=== PATIENT | female | born 1990 | race Caucasian/White ===

== ENCOUNTER 2016-11-24 22:31 | Emergency (ER) | payer SELFPAY | END 2016-11-24 22:38 | disposition left against medical advice (07) | LOC: ER 22:31 | DX: Z53.21 Procedure and treatment not carried out due to patient leaving prior to being seen by health care provider (principal) | CPT/HCPCS: 99211 ==

== ENCOUNTER 2017-04-03 11:43 | Emergency (ER) | payer SELFPAY | END 2017-04-03 12:09 | disposition home or self-care (01) | LOC: ER 11:43 | DX: H66.91 Otitis media, unspecified, right ear (principal); J20.9 Acute bronchitis, unspecified; R50.9 Fever, unspecified; R05 Cough; R11.0 Nausea; R19.7 Diarrhea, unspecified; F17.210 Nicotine dependence, cigarettes, uncomplicated; Z79.899 Other long term (current) drug therapy | CPT/HCPCS: 99282; 99283 ==